=== PATIENT | male | born 1970 | race Caucasian/White ===

== ENCOUNTER 2017-04-05 12:26 | Inpatient (IN) | payer OTHER ==
[2017-04-05 14:29] LABS: BASO % 0.3 % (0.0-2.0); EOS % 0.3 % (0.0-4.0); HEMOGLOBIN 15.7 g/dL (12.0-18.0); LYMPH % 12.7 % (20.0-40.0); MEAN CELL VOLUME 82.9 fL (80.0-94.0); MEAN CORPUSCULAR HEMOGLOBIN 28.3 pg (27.0-31.0); MEAN CORPUSCULAR HGB CONC 34.1 g/dL (33.0-37.0); MEAN PLATELET VOLUME 9.6 fL (7.2-11.7); MONO # 0.5 K/uL (0.0-0.8); MONO % 5.9 % (0.0-10.0); NEUT # 6.5 K/uL (1.8-7.0); NEUT % 80.8 % (50.0-75.0); NRBC % 0.1 % (0.0-2.0); RBC 5.54 Mil/uL (4.40-5.90); RED CELL DISTRIBUTION WIDTH 14.1 % (11.5-14.5); WHITE BLOOD COUNT 8.1 K/uL (4.8-10.8)
--- NOTE | 2017-04-05 14:31 | RAD ---
HISTORY: numbness COMPARISON: None available. TECHNIQUE: Chest, one view. FINDINGS: Examination limited by habitus. LUNGS: No focal consolidation. Please note that chest x-ray has limited sensitivity for the detection of pulmonary masses. PLEURA: No significant pleural effusion identified. No definite pneumothorax . CARDIOVASCULAR: Heart size appears within normal limits. OSSEOUS STRUCTURES: No acute osseous abnormality identified. VISUALIZED UPPER ABDOMEN: Unremarkable. OTHER FINDINGS: None. IMPRESSION: No focal consolidation identified.
--- NOTE | 2017-04-05 14:37 | C.PDOC ---
History Of Present Illness 46-year-old male, presents to the emergency department, accompanied by co- worker with complaints of altered mental status about thirty minutes prior to arrival. Co-worker reports that while at work this morning, patient had an episode of sudden onset shaking, and speech changes. Patients symptoms resolved spontaneously after three-five minutes. Patient notes associated numbness to the right side of his face that has now resolved. Presently, patient with baseline mental status. Denies any visual changes, arm/leg numbness/weakness, dizziness, neck pain, back pain, nausea/vomiting, fevers, chills, chest pain or shortness of breath or any other associated symptoms. No other complaints at this time. Time Seen by Provider: 04/05/17 13:54 Chief Complaint (Nursing): Weakness/Neurological Deficit History Per: Patient History/Exam Limitations: no limitations Onset/Duration Of Symptoms: Other (Prior to arrival.) Current Symptoms Are (Timing): Better Past Medical History Reviewed: Historical Data, Nursing Documentation, Vital Signs Vital Signs: Last Vital Signs Temp 97.7 F 04/05/17 12:38 Pulse 95 H 04/05/17 17:41 Resp 20 04/05/17 17:41 BP 144/88 04/05/17 17:41 Pulse Ox 100 04/05/17 18:18 Family History: States: No Known Family Hx - Social History Hx Alcohol Use: Yes Hx Substance Use: No - Immunization History Hx Tetanus Toxoid Vaccination: No Hx Influenza Vaccination: No Hx Pneumococcal Vaccination: No Review Of Systems Except As Marked, All Systems Reviewed And Found Negative. Constitutional: Negative for: Fever, Weakness Cardiovascular: Negative for: Chest Pain, Palpitations, Light Headedness Respiratory: Negative for: Shortness of Breath Gastrointestinal: Negative for: Nausea, Vomiting Musculoskeletal: Negative for: Back Pain Neurological: Positive for: Numbness, Change in Speech, Altered Mental Status, Headache (Mild). Negative for: Weakness, Seizures, Dizziness Physical Exam - Physical Exam Appears: Non-toxic, No Acute Distress Skin: Warm, Dry, No Diaphoretic, No Rash Head: Atraumatic, Normacephalic Eye(s): bilateral: Normal Inspection, PERRL, EOMI Ear(s): Bilateral: Normal Nose: Normal Oral Mucosa: Moist Lips: Normal Appearing Neck: Normal ROM, Supple Chest: Symmetrical, No Tenderness Cardiovascular: Rhythm Regular, No Friction Rub, No Murmur Respiratory: Normal Breath Sounds, No Decreased Breath Sounds, No Accessory Muscle Use, No Rales, No Rhonchi, No Wheezing Gastrointestinal/Abdominal: Bowel Sounds (active), Soft, No Tenderness Back: Normal Inspection, No CVA Tenderness Extremity: Normal ROM, No Tenderness, No Swelling Neurological/Psych: Oriented x3, Normal Speech, Normal Cognition, Normal Cranial Nerves (Tongue midline), No Cerebellar Signs, Normal Motor, Normal Sensation, Other (No focal deficit) Gait: Steady ED Course And Treatment - Laboratory Results Result Diagrams: 04/05/17 14:21 04/05/17 14:21 O2 Sat by Pulse Oximetry: 100 (RA) Pulse Ox Interpretation: Normal - Radiology CXR: Interpreted by Me, Read By Radiologist CXR Interpretation: Yes: No Acute Disease. No: Infiltrates NIHSS Stroke Scale 2 - Date/Time Evaluation Performed Date Performed: 04/05/17 Time Performed: 13:30 When Was NIHSS Performed: Baseline - How Severe is the Stroke Level of Consciousness: 0=Alert LOC to Questions: 0=Both comments correct LOC to commands: 0=Obeys both correctly Best Gaze: 0=Normal Visual: 0=No visual loss Facial: 0=Normal Motor Arm - Left: 0=No drift Motor Arm - Right: 0=No drift Motor Leg - Left: 0=No drift Motor Leg - Right: 0=No drift Limb Ataxia: 0=Absent Sensory: 0=Normal Best Language: 0=No aphasia Dysarthia: 0=Normal articulation Extinction & Inattention (Neglect): 0=Normal, no object Score: 0 rTPA Inclusion/Exclusion - Refusal of Treatment Patient Refused Treatment: No - Inclusion Criteria for Altepase Patient is 18 years or Older: Yes The Clinical Diagnosis of Ischemic Stroke That is Causing a Potentially Disabling Neurological Deficit: No Time of Onset is Well Established to be Less Than 270 Minute Before Treatment Would Begin: Yes Risk/Benefit Discussed With Patient/Family Member Present: Yes Medical Decision Making Medical Decision Making: Plan: * CT Head * EKG * BNP, CK-MB, CMP, C-Phos, Mag, Trop I * CBC, PT/PTT * Chest X-Ray * Reassess and Disposition The case was discussed with Dr. Finch (neuro oncall) who states to order MRI with/without contrast. The case was discussed with Dr. Ada Rosales who agrees to admit the patient for TIA/CVA vs new onset seizure, vs, brain mass. On re-exam at 1800, the patient remains without neuro deficits. Disposition - Disposition Disposition: HOSPITALIZED Disposition Time: 17:30 Condition: FAIR Forms: [facility] (Sinhala) - Clinical Impression Clinical Impression: TIA (transient ischemic attack), Brain mass - Scribe Statement All medical record entries made by the Scribe were at my direction and personally dictated by me. I have reviewed the chart and agree that the record accurately reflects my personal performance of the history, physical exam, medical decision making, and the department course for this patient. I have also personally directed, reviewed, and agree with the discharge instructions and disposition.
[2017-04-05 14:38] LABS: INR 1.2
[2017-04-05 14:50] LABS: ALB/GLOB RATIO 1.2 (1.0-2.1); ALBUMIN 4.5 g/dL (3.5-5.0); ALT/SGPT 53 U/L (21-72); AST/SGOT 33 U/L (17-59); BLOOD UREA NITROGEN 14 mg/dL (9-20); CALCIUM 9.8 mg/dl (8.6-10.4); GFR AFRICAN-AMERICAN > 60; GFR NON-AFRICAN AMERICAN > 60; MAGNESIUM 1.9 mg/dL (1.6-2.3)
[2017-04-05 15:05] LABS: B-TYPE NATRIURETIC PEPTIDE 21.9 pg/mL (0-450); CK-MB 0.32 ng/mL (0.0-3.38)
--- NOTE | 2017-04-05 15:48 | CT ---
PROCEDURE: CT HEAD WITHOUT CONTRAST. HISTORY: new onset convulsions, right sided facial numbness COMPARISON: None available. TECHNIQUE: Axial computed tomography images were obtained through the head/brain without intravenous contrast. Radiation dose: Total exam DLP = 956.66 mGy-cm. This CT exam was performed using one or more of the following dose reduction techniques: Automated exposure control, adjustment of the mA and/or kV according to patient size, and/or use of iterative reconstruction technique. FINDINGS: HEMORRHAGE: No intracranial hemorrhage. BRAIN: No mass effect or edema. Ill-defined hypodense region within the left frontal lobe with subcortical/cortical white matter involvement. Mild overlying sulcal effacement noted. VENTRICLES: No hydrocephalus. CALVARIUM: Unremarkable. PARANASAL SINUSES: Mucosal thickening/ partial opacification of the left maxillary sinus. The remainder the visualized paranasal sinuses appear clear. MASTOID AIR CELLS: Unremarkable as visualized. No inflammatory changes. OTHER FINDINGS: None. IMPRESSION: Ill-defined hypodense region within the left frontal lobe. Subcortical/cortical white matter involvement noted. Mild overlying sulcal effacement evident. Considerations include ischemia, neoplasm, abscess. Recommend MRI without and with IV contrast for further evaluation. Findings discussed with Dr. Quiles on 04/05/17 at 3:45 p.m.
[2017-04-05] MEDS ORDERED: Gadodiamide 287 mg/ml 20 ml IV ONE (17:12)
--- NOTE | 2017-04-05 19:37 | CP.PCM.HP ---
Past Patient History - Past Social History Smoking Status: Never Smoked - PSYCHIATRIC Hx Substance Use: No - SURGICAL HISTORY Hx Surgeries: No Meds Allergies/Adverse Reactions: Allergies Allergy/AdvReac Type Severity Reaction Status Date / Time No Known Allergies Allergy Verified 04/05/17 12:42 Physical Exam - Constitutional Appears: Well - Head Exam Head Exam: ATRAUMATIC, NORMAL INSPECTION, NORMOCEPHALIC - Eye Exam Eye Exam: EOMI, Normal appearance, PERRL Pupil Exam: NORMAL ACCOMODATION, PERRL - ENT Exam ENT Exam: Mucous Membranes Moist, Normal Exam - Neck Exam Neck exam: Positive for: Normal Inspection - Respiratory Exam Respiratory Exam: Decreased Breath Sounds - Cardiovascular Exam Cardiovascular Exam: REGULAR RHYTHM, +S1, +S2 - GI/Abdominal Exam GI & Abdominal Exam: Diminished Bowel Sounds, Soft - Rectal Exam Rectal Exam: Deferred Results - Vital Signs Recent Vital Signs: Last Vital Signs Temp 97.7 F 04/05/17 12:38 Pulse 95 H 04/05/17 19:12 Resp 16 04/05/17 19:12 BP 137/89 04/05/17 19:12 Pulse Ox 98 04/05/17 19:12 - Labs Result Diagrams: 04/05/17 14:21 04/05/17 14:21 Labs: Laboratory Results - last 24 hr 04/05/17 04/05/17 04/05/17 14:21 14:21 14:21 WBC 8.1 RBC 5.54 Hgb 15.7 Hct 45.9 MCV 82.9 MCH 28.3 MCHC 34.1 RDW 14.1 Plt Count 207 MPV 9.6 Neut % (Auto) 80.8 H Lymph % (Auto) 12.7 L [place] % (Auto) 5.9 Eos % (Auto) 0.3 Baso % (Auto) 0.3 Neut # (Auto) 6.5 Lymph # (Auto) 1.0 [place] # (Auto) 0.5 Eos # (Auto) 0.0 Baso # (Auto) 0.0 PT 13.0 H INR 1.2 APTT 31 Sodium 139 Potassium 3.9 Chloride 98 Carbon Dioxide 27 Anion Gap 17 BUN 14 Creatinine 1.0 Est GFR ( Amer) > 60 Est GFR (Non-Af Amer) > 60 Random Glucose 107 Calcium 9.8 Magnesium 1.9 Total Bilirubin 0.5 AST 33 ALT 53 Alkaline Phosphatase 99 Total Creatine Kinase 101 CK-MB (Mass) 0.32 Troponin I < 0.0120 NT-Pro-B Natriuret Pep 21.9 Total Protein 8.2 Albumin 4.5 Globulin 3.7 Albumin/Globulin Ratio 1.2 Assessment & Plan (1) Brain mass Status: Acute (2) TIA (transient ischemic attack) Status: Acute - Assessment and Plan (Free Text) Plan: aspirn crestor prpotnix lvoenox neuroconsult id consult prn as less likel to be abscess will not start antibiotic at this time no need fo rlp
[2017-04-06 01:13] VITALS: RESP 20
[2017-04-06] MEDS: Enoxaparin 40 mg Syringe SC SCH (09:38)
--- NOTE | 2017-04-06 10:22 | CP.PCM.PN ---
Subjective - Date & Time of Evaluation Date of Evaluation: 04/06/17 Time of Evaluation: 10:15 - Subjective Subjective: progress note- mario valadez md pt seen and examined at bedside. no acute distress. feels weak with slight headache. no fevers, chills, cp, seizures. mri pending. Objective - Vital Signs/Intake and Output Vital Signs (last 24 hours): Temp Pulse Resp BP Pulse Ox 98.3 F 88 20 129/71 95 04/06/17 08:26 04/06/17 08:26 04/06/17 08:26 04/06/17 08:26 04/06/17 08:26 Intake and Output: 04/06/17 04/06/17 06:59 18:59 Intake Total 200 Balance 200 - Medications Medications: Current Medications Aspirin (Aspirin) 325 mg PO DAILY [facility] Last Admin: 04/06/17 09:38 Dose: 325 mg Enoxaparin Sodium (Lovenox) 40 mg SC DAILY [facility] Last Admin: 04/06/17 09:38 Dose: 40 mg Pneumococcal Polyvalent Vaccine (Pneumovax 23 Vaccine) 0.5 ml IM .ONCE ONE Stop: 04/07/17 10:01 Rosuvastatin Calcium (Crestor) [address] [facility] Last Admin: 04/06/17 00:22 Dose: 10 mg - Labs Labs: 04/05/17 14:21 04/05/17 14:21 PT 13.0 SECONDS (9.7-12.2) H 04/05/17 14:21 INR 1.2 04/05/17 14:21 APTT 31 SECONDS (21-34) 04/05/17 14:21 - Constitutional Appears: Non-toxic, No Acute Distress - Head Exam Head Exam: ATRAUMATIC, NORMAL INSPECTION, NORMOCEPHALIC - Eye Exam Eye Exam: EOMI - ENT Exam ENT Exam: Mucous Membranes Moist - Neck Exam Neck Exam: Full ROM, Normal Inspection - Respiratory Exam Respiratory Exam: Decreased Breath Sounds. absent: Respiratory Distress - Cardiovascular Exam Cardiovascular Exam: REGULAR RHYTHM, +S1, +S2 - GI/Abdominal Exam GI & Abdominal Exam: Soft, Normal Bowel Sounds. absent: Tenderness - Extremities Exam Extremities Exam: Full ROM, Normal Inspection - Back Exam Back Exam: NORMAL INSPECTION - Neurological Exam Neurological Exam: Alert, Awake, Oriented x3 - Psychiatric Exam Psychiatric exam: Normal Affect, Normal Mood - Skin Skin Exam: Dry, Intact, Normal Color, Warm Assessment and Plan - Assessment and Plan (Free Text) Assessment: this is a 46 yo male with no significant pmh with 1. AMS -2 to mass vs. TIA -neuro consult -head ct shows ill defined hypodension area in frontal lobe -mri pending -bnp nl -trop neg -continue asa daily -continue lovenox daily -continue crestor 2. gi/dvt ppx -protonix -lovenox -scds
--- NOTE | 2017-04-06 10:51 | MRI ---
PROCEDURE: MRI of the brain dated 04/05/2017 HISTORY: Possible ischemia versus mass COMPARISON: Comparison made with CT scan brain earlier same day TECHNIQUE: Multiplanar, multisequence MR images of the brain were obtained with and without intravenous contrast enhancement. FINDINGS: HEMORRHAGE: No evidence of acute parenchymal, subarachnoid or extra-axial hemorrhage. The no hemosiderin deposition is identified on gradient echo weighted sequence. . DWI: No evidence of an acute or early subacute infarction seen on diffusion imaging. BRAIN PARENCHYMA: Re- demonstrated is a round/elliptical shaped area of somewhat heterogeneous increased T2 signal in the left parietal operculum region which measures approximately 3.6 cm AP x 3.45 cm trans with subtle more discrete areas of bright T2 signal. The lesion involves the cortex and underlying subcortical white matter but does not exhibit any discernible contrast enhancement. . The lesion the exerts of little in the way of mass-effect of relatively to its size. Rule out a low-grade tumor such as a low-grade glioma common ganglia glioma, possibly Dysembryoplastic neuroepithelial tumor (DNET) oligodendroglioma. The possibility of a localized encephalitis not excluded. CSF evaluation may be of some benefit. Biopsy may ultimately be required for definitive diagnosis ENHANCEMENT: No abnormal intracranial enhancement as detailed above. VENTRICLES: No obstructive hydrocephalus. CRANIUM: Calvarium appears grossly intact so far as can be seen. 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 . There is mucosal thickening in the left maxillary antrum with questionable fluid level. Minimal mucosal thickening seen within a few ethmoid air cells. VASCULAR SYSTEM: Skull base flow voids intact. OTHER FINDINGS: None . IMPRESSION: There is a round/elliptical shaped on lesion in the left parietal operculum region at involves the cortex and subcortical white matter demonstrating increased T2 signal with more discrete internal areas of very bright T2 signal. This lesion does not exhibit discernible contrast enhancement and is of uncertain etiology. Rule out a low-grade tumor such as a low-grade glioma common ganglia glioma, possibly Dysembryoplastic neuroepithelial tumor (DNET) oligodendroglioma. The possibility of a localized encephalitis not excluded. Clinical correlation recommended. CSF evaluation may be helpful however of biopsy may ultimately be required for definitive diagnosis.
--- NOTE | 2017-04-06 15:38 | CP.PCM.CON ---
History of Present Illness - History of Present Illness History of Present Illness: Mr. Hogan is a 46-year-old man with no significant past medical history, who presented to the ED after seizure-like activity. He states that he was at work , and suddenly felt that his mouth was curling to the side, his body started to shake and he could not breathe. His vision went blurry, and he could not respond to co-workers who came to his aid. He was unable to speak. This lasted for about 2 mins, and afterward he was able to breathe, but continued to have slurred speech and right facial droop. Within about 30 minutes, he regained function. CT scan of the head showed a hypodensity concerning for a possible left parietal/frontal lobe mass, which was confirmed by MRI brain to be a non-enhancing mass. The patient admits to having increased headaches at night, when laying down and tension/pressure-like pain. He denied weight loss, night-sweats, or any other seizures. Review of Systems - Review of Systems All systems: reviewed and no additional remarkable complaints except Past Patient History - Past Medical History & Family History Past Medical History?: No - Past Social History Smoking Status: Never Smoked - MUSCULOSKELETAL/RHEUMATOLOGICAL Hx Falls: No - PSYCHIATRIC Hx Substance Use: No - SURGICAL HISTORY Hx Surgeries: No - ANESTHESIA Hx Anesthesia: No Hx Anesthesia Reactions: No Meds Allergies/Adverse Reactions: Allergies Allergy/AdvReac Type Severity Reaction Status Date / Time No Known Allergies Allergy Verified 04/05/17 12:42 - Medications Medications: Current Medications Aspirin (Aspirin) 325 mg PO DAILY [facility] Last Admin: 04/06/17 09:38 Dose: 325 mg Enoxaparin Sodium (Lovenox) 40 mg SC DAILY [facility] Last Admin: 04/06/17 09:38 Dose: 40 mg Pantoprazole Sodium (Protonix Inj) 40 mg IVP DAILY [facility] Last Admin: 04/06/17 11:30 Dose: 40 mg Pneumococcal Polyvalent Vaccine (Pneumovax 23 Vaccine) 0.5 ml IM .ONCE ONE Stop: 04/07/17 10:01 Rosuvastatin Calcium (Crestor) 10 mg PO HS [facility] Last Admin: 04/06/17 00:22 Dose: 10 mg Physical Exam - Constitutional Appears: Well - Head Exam Head Exam: ATRAUMATIC, NORMAL INSPECTION, NORMOCEPHALIC - Eye Exam Eye Exam: EOMI, Normal appearance, PERRL - ENT Exam ENT Exam: Mucous Membranes Moist, Normal Exam - Neck Exam Neck exam: Positive for: Normal Inspection - Respiratory Exam Respiratory Exam: Clear to Auscultation Bilateral, NORMAL BREATHING PATTERN - Cardiovascular Exam Cardiovascular Exam: REGULAR RHYTHM, +S1, +S2 - GI/Abdominal Exam GI & Abdominal Exam: Normal Bowel Sounds, Soft. absent: Tenderness - Rectal Exam Rectal Exam: Deferred - Extremities Exam Extremities exam: Positive for: normal inspection - Back Exam Back exam: NORMAL INSPECTION - Neurological Exam Neurological exam: Alert, CN II-XII Intact, Normal Gait, Oriented x3, Reflexes Normal Additional comments: Slight prontator drift of RUE. - Psychiatric Exam Psychiatric exam: Normal Affect, Normal Mood - Skin Skin Exam: Dry, Intact, Normal Color, Warm Results - Vital Signs Recent Vital Signs: Last Vital Signs Temp 98.3 F 04/06/17 08:26 Pulse 88 04/06/17 08:26 Resp 20 04/06/17 08:26 BP 129/71 04/06/17 08:26 Pulse Ox 95 04/06/17 08:26 - Labs Result Diagrams: 04/05/17 14:21 04/05/17 14:21 Labs: Laboratory Results - last 24 hr 04/06/17 04/06/17 07:04 11:13 POC Glucose (mg/dL) 92 117 H Assessment & Plan (1) Brain mass Assessment and Plan: It is difficult to determine the exact type of mass based on MRI alone. Neurosurgical consultation is recommended to determine if biopsy is needed versus surgical excision or other treatment options. Status: Acute Priority: High (2) Seizure Assessment and Plan: Will start Vimpat for seizure prophylaxis. Load with 200 mg PO once and continue 100 mg Q12. Obtain EEG for seizure characterization. Thank you for this consultation. Status: Acute Priority: High
[2017-04-06] MEDS ORDERED: Lacosamide 100 MG Tab PO ONE (16:15)
--- NOTE | 2017-04-06 16:45 | CP.PCM.PN ---
Subjective - Date & Time of Evaluation Date of Evaluation: 04/06/17 Time of Evaluation: 08:20 - Subjective Subjective: clinically same Objective - Vital Signs/Intake and Output Vital Signs (last 24 hours): Temp Pulse Resp BP Pulse Ox 97.9 F 91 H 20 138/84 94 L 04/06/17 16:23 04/06/17 16:23 04/06/17 16:23 04/06/17 16:23 04/06/17 16:23 Intake and Output: 04/06/17 04/06/17 06:59 18:59 Intake Total 200 480 Balance 200 480 - Medications Medications: Current Medications Aspirin (Aspirin) 325 mg PO DAILY [facility] Last Admin: 04/06/17 09:38 Dose: 325 mg Enoxaparin Sodium (Lovenox) 40 mg SC DAILY [facility] Last Admin: 04/06/17 09:38 Dose: 40 mg Lacosamide (Vimpat) 100 mg PO BID [facility] Pantoprazole Sodium (Protonix Inj) 40 mg IVP DAILY [facility] Last Admin: 04/06/17 11:30 Dose: 40 mg Pneumococcal Polyvalent Vaccine (Pneumovax 23 Vaccine) 0.5 ml IM .ONCE ONE Stop: 04/07/17 10:01 Rosuvastatin Calcium (Crestor) 10 mg PO HS [facility] Last Admin: 04/06/17 00:22 Dose: 10 mg - Labs Labs: 04/05/17 14:21 04/05/17 14:21 PT 13.0 SECONDS (9.7-12.2) H 04/05/17 14:21 INR 1.2 04/05/17 14:21 APTT 31 SECONDS (21-34) 04/05/17 14:21 - Constitutional Appears: Well - Head Exam Head Exam: ATRAUMATIC, NORMAL INSPECTION, NORMOCEPHALIC - Eye Exam Eye Exam: EOMI, Normal appearance, PERRL Pupil Exam: NORMAL ACCOMODATION, PERRL - ENT Exam ENT Exam: Mucous Membranes Moist, Normal Exam - Neck Exam Neck Exam: Full ROM, Normal Inspection. absent: Lymphadenopathy - Respiratory Exam Respiratory Exam: Decreased Breath Sounds - Cardiovascular Exam Cardiovascular Exam: REGULAR RHYTHM, +S1, +S2 - GI/Abdominal Exam GI & Abdominal Exam: Soft, Diminished Bowel Sounds - Rectal Exam Rectal Exam: Deferred Assessment and Plan (1) Brain mass Status: Acute (2) TIA (transient ischemic attack) Status: Acute
[2017-04-06] MEDS ORDERED: Lacosamide 100 MG Tab PO SCH (18:00)
[2017-04-06] MEDS ORDERED: Dexamethasone 4 mg/1 ml IVP ONE (20:02)
[2017-04-07 07:50] LABS: BASO % 0.3 % (0.0-2.0); HEMOGLOBIN 15.5 g/dL (12.0-18.0); LYMPH # 0.9 K/uL (1.0-4.3); LYMPH % 10.7 % (20.0-40.0); MEAN CELL VOLUME 82.4 fL (80.0-94.0); MEAN CORPUSCULAR HEMOGLOBIN 28.6 pg (27.0-31.0); MEAN CORPUSCULAR HGB CONC 34.7 g/dL (33.0-37.0); MEAN PLATELET VOLUME 9.5 fL (7.2-11.7); MONO # 0.1 K/uL (0.0-0.8); MONO % 1.5 % (0.0-10.0); NEUT # 7.1 K/uL (1.8-7.0); NEUT % 87.5 % (50.0-75.0); RBC 5.41 Mil/uL (4.40-5.90); RED CELL DISTRIBUTION WIDTH 14.5 % (11.5-14.5); WHITE BLOOD COUNT 8.1 K/uL (4.8-10.8)
[2017-04-07 08:49] LABS: ALB/GLOB RATIO 1.3 (1.0-2.1); ALBUMIN 4.2 g/dL (3.5-5.0); ALT/SGPT 39 U/L (21-72); AST/SGOT 26 U/L (17-59); BLOOD UREA NITROGEN 20 mg/dL (9-20); CALCIUM 8.7 mg/dl (8.6-10.4); GFR AFRICAN-AMERICAN > 60; GFR NON-AFRICAN AMERICAN > 60
--- NOTE | 2017-04-07 09:30 | CP.PCM.PN ---
Subjective - Date & Time of Evaluation Date of Evaluation: 04/07/17 Time of Evaluation: 09:30 - Subjective Subjective: progress note- mario valadez pt seen and examined at bedside. no acute distress. pt is nervous about diagnosis. no fevers, chills, vomiting, diarrhea, chest pain, shortness of breath, headaches. neurosx eval is pending. Objective - Vital Signs/Intake and Output Vital Signs (last 24 hours): Temp Pulse Resp BP Pulse Ox 97.4 F L 88 20 116/75 94 L 04/07/17 08:00 04/07/17 08:00 04/07/17 08:00 04/07/17 08:00 04/07/17 08:00 Intake and Output: 04/07/17 04/07/17 06:59 18:59 Intake Total 810 Balance 810 - Medications Medications: Current Medications Aspirin (Aspirin) 325 mg PO DAILY [facility] Last Admin: 04/06/17 09:38 Dose: 325 mg Enoxaparin Sodium (Lovenox) 40 mg SC DAILY [facility] Last Admin: 04/06/17 09:38 Dose: 40 mg Lacosamide (Vimpat) 100 mg PO BID [facility] Pantoprazole Sodium (Protonix Inj) 40 mg IVP DAILY [facility] Last Admin: 04/06/17 11:30 Dose: 40 mg Pneumococcal Polyvalent Vaccine (Pneumovax 23 Vaccine) 0.5 ml IM .ONCE ONE Stop: 04/07/17 10:01 Rosuvastatin Calcium (Crestor) 10 mg PO HS [facility] Last Admin: 04/06/17 22:22 Dose: 10 mg - Labs Labs: 04/07/17 07:32 04/07/17 07:32 PT 13.0 SECONDS (9.7-12.2) H 04/05/17 14:21 INR 1.2 04/05/17 14:21 APTT 31 SECONDS (21-34) 04/05/17 14:21 - Constitutional Appears: Non-toxic, No Acute Distress - Head Exam Head Exam: ATRAUMATIC, NORMAL INSPECTION, NORMOCEPHALIC - Eye Exam Eye Exam: EOMI - ENT Exam ENT Exam: Mucous Membranes Moist - Neck Exam Neck Exam: Full ROM - Respiratory Exam Respiratory Exam: NORMAL BREATHING PATTERN. absent: Respiratory Distress - Cardiovascular Exam Cardiovascular Exam: +S1, +S2 - GI/Abdominal Exam GI & Abdominal Exam: Soft, Normal Bowel Sounds. absent: Tenderness - Extremities Exam Extremities Exam: Full ROM, Normal Inspection - Back Exam Back Exam: NORMAL INSPECTION - Neurological Exam Neurological Exam: Alert, Awake, Oriented x3 - Psychiatric Exam Psychiatric exam: Normal Affect, Normal Mood - Skin Skin Exam: Dry, Intact, Normal Color, Warm Assessment and Plan - Assessment and Plan (Free Text) Assessment: this is a 46 yo male with no significant pmh with 1. brain mass -pt initially presented with altered mental status and slurred speech -neuro consult with DR TUCKER -head ct shows ill defined hypodense area in frontal lobe -mri showed mass/lesion in brain, unclear etiology with differential including glioma and oligodendroglioma -bnp nl -trop neg -continue asa 325 mg PO daily -continue lovenox sc daily -continue crestor 10 mg po hs -neurosurgery has been consulted. DR WOLF. -we will start lacosamide BID for seizure ppx 2. gi/dvt ppx -protonix -lovenox -scds dw dr valadez.
[2017-04-07] MEDS ORDERED: Pneumococcal 23-Valent Vaccine IM ONE (10:00)
[2017-04-07] MEDS: Enoxaparin 40 mg Syringe SC SCH ×2 (11:00→11:38)
[2017-04-07] MEDS: Lacosamide 100 MG Tab PO SCH ×2 (11:00→11:41)
--- NOTE | 2017-04-07 11:44 | CP.PCM.PN ---
Subjective - Date & Time of Evaluation Date of Evaluation: 04/07/17 Time of Evaluation: 11:41 - Subjective Subjective: PGY2 progress note for neurology, Dr. Finch Pt seen and examined at bedside. No acute events overnight per nurse. Patient states that after he received the anti-seizure medication, he developed "a migraine". The headache was located mostly in the frontal area. Denies having any vision changes, phototphibia, nausea or vomting with the headache. Patient denies having any CP, SOB, abd pain, N/V/D/C, F/C. Currently denies having any headache. Objective - Vital Signs/Intake and Output Vital Signs (last 24 hours): Temp Pulse Resp BP Pulse Ox 97.4 F L 88 20 116/75 94 L 04/07/17 08:00 04/07/17 08:00 04/07/17 08:00 04/07/17 08:00 04/07/17 08:00 Intake and Output: 04/07/17 04/07/17 06:59 18:59 Intake Total 810 Balance 810 - Medications Medications: Current Medications Aspirin (Aspirin) 325 mg PO DAILY [facility] Last Admin: 04/07/17 11:00 Dose: Not Given Enoxaparin Sodium (Lovenox) 40 mg SC DAILY [facility] Last Admin: 04/07/17 11:00 Dose: Not Given Lacosamide (Vimpat) 100 mg PO BID [facility] Last Admin: 04/07/17 11:00 Dose: Not Given Pantoprazole Sodium (Protonix Inj) 40 mg IVP DAILY [facility] Last Admin: 04/07/17 11:00 Dose: Not Given Rosuvastatin Calcium (Crestor) 10 mg PO HS [facility] Last Admin: 04/06/17 22:22 Dose: 10 mg - Labs Labs: 04/07/17 07:32 04/07/17 07:32 PT 13.0 SECONDS (9.7-12.2) H 04/05/17 14:21 INR 1.2 04/05/17 14:21 APTT 31 SECONDS (21-34) 04/05/17 14:21 - Constitutional Appears: Non-toxic, No Acute Distress - Head Exam Head Exam: ATRAUMATIC, NORMAL INSPECTION, NORMOCEPHALIC - Eye Exam Eye Exam: EOMI, Normal appearance, PERRL Pupil Exam: NORMAL ACCOMODATION, PERRL - ENT Exam ENT Exam: Mucous Membranes Moist - Neck Exam Neck Exam: Normal Inspection - Respiratory Exam Respiratory Exam: Clear to Ausculation Bilateral, NORMAL BREATHING PATTERN. absent: Rales, Rhonchi, Wheezes - Cardiovascular Exam Cardiovascular Exam: REGULAR RHYTHM, RRR, +S1, +S2. absent: Gallop, Rubs, Murmur - GI/Abdominal Exam GI & Abdominal Exam: Soft, Normal Bowel Sounds. absent: Firm, Guarding, Rigid, Organomegaly - Extremities Exam Extremities Exam: Full ROM. absent: Pedal Edema - Neurological Exam Neurological Exam: Alert, Awake, CN II-XII Intact, Normal Gait, Oriented x3 Neuro motor strength exam: Left Upper Extremity: 5, Right Upper Extremity: 5, Left Lower Extremity: 5, Right Lower Extremity: 5 Additional comments: 2+ DTR in upper and lower extremities, normal and equal sensation in UE and LE B /L. - Psychiatric Exam Psychiatric exam: Normal Affect, Normal Mood - Skin Skin Exam: Dry, Intact, Normal Color, Warm Assessment and Plan - Assessment and Plan (Free Text) Assessment: (1) Brain mass MRI 04/06/17 show lesion on left parietal operculum region involving the cortex and subcortical white matter Neurosurgical consultation is recommended to determine if biopsy is needed versus surgical excision or other treatment options. Neurosurgeon, Dr. Power is consulted (2) Seizure Will start Vimpat for seizure prophylaxis. Load with 200 mg PO once and continue 100 mg Q12. EEG for seizure characterization obtained this morning, results pending. Case will be discussed with attending, Dr. Finch.
[2017-04-07 16:18] VITALS: BP 123/69; PULSE 90; TEMP 97.8; O2SAT 93
--- NOTE | 2017-04-07 16:34 | CARD ---
APPROVED REPORT EKG Measurement Heart [id number] <Conclusion> Normal sinus rhythm Normal ECG
--- NOTE | 2017-04-08 07:24 | CON ---
DATE: 04/07/2017 HISTORY OF PRESENT ILLNESS: This is a 46-year-old male who while at work basically experienced a seizure, he noted right facial twitching, drooling, difficulty breathing, not feeling right, had to sit down. By the time paramedics arrived, he was already resolving so much and was taken emergently to the [facility] ER. He states that since this episode, he really has had no problems. At the present time, he denies any numbness, weakness, dysphagia, dysarthria etc,. He has ever had an episode like this before. PAST MEDICAL HISTORY: Relatively benign or everything reviewed in the EMR. PHYSICAL EXAMINATION: GENERAL: He is bright, awake and alert. NEUROLOGIC: Speech and mental status normal. Pupils equal and reactive. EOMs are full. Lower cranial nerves are intact. Face is symmetric. He has no drift. He has excellent [id number] bilaterally. He has 5/5 strength throughout. Sensation is grossly intact. CT and MRI confirmed presence of a low attenuation lesion predominantly white matter in the left frontoparietal region just above the temporal lobe. There is no enhancement at all with gadolinium and there is very little with any mass effect. 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 There is certainly nothing emergent to be performed here. I would suggest the patient to be optimized in terms of oral anticonvulsants, can probably be discharged home. The options thus far treating this down the road is to watch this or perform a biopsy which I would favor. The patient indicates that he lives all the way down in [place] and likely he is going to seek further care around where he lives; however, I gave him my card and certainly told him I will be happy to follow him up myself if he so chooses. Drew Power MD
[2017-04-08] MEDS ORDERED: Influenza Vaccine 60 mcg/0.5 mL SYR (4YR UP) IM ONE (10:00)
== END 2017-04-07 16:28 | disposition home or self-care (01) | DRG 71 ==
LOC: C.ER 12:26 → C.9E 17:53 → C.3T 22:43
PROVIDERS: ADMIT Internal Medicine Nephrology; ATTEND Internal Medicine Nephrology
DX: G93.9 Disorder of brain, unspecified (principal); Z68.41 Body mass index [BMI] 40.0-44.9, adult; R56.9 Unspecified convulsions